=== PATIENT | male | born 1960 | race Caucasian/White ===

== ENCOUNTER 2020-08-18 16:00 | Emergency (ER) | payer OTHER ==
[~2020-08-18] VITALS: Ht 182.9 cm; Wt 140.6 kg
--- NOTE | 2020-08-18 16:24 | NUR ---
Dr Baum at the bedside for MSE.
[2020-08-18] MEDS ORDERED: REPA1TAB7 PO (16:29)
[2020-08-18] MEDS ORDERED: ROSU20TA2 PO (16:29)
[2020-08-18] MEDS ORDERED: METF-442 PO (16:29)
[2020-08-18] MEDS ORDERED: SITA100T PO (16:29)
[2020-08-18] MEDS ORDERED: ASPI81TA31 PO (16:29)
[2020-08-18] MEDS ORDERED: VITAMIN D3 PO (16:29)
[2020-08-18] MEDS ORDERED: GLIP5TAB13 PO (16:29)
[2020-08-18] MEDS ORDERED: OLME1TAB22 PO (16:29)
[2020-08-18] MEDS ORDERED: IV NORMAL SALINE 500 ML BAG IV ONE (16:30)
--- NOTE | 2020-08-18 16:55 | NUR ---
Pt out of Er for CT.
[2020-08-18 17:02] LABS: BASOPHILS % (AUTO) 0.4 % (0.0-2.0); EOSINOPHILS # (AUTO) 0.1 K/uL (0.0-0.7); EOSINOPHILS % (AUTO) 1.1 % (0.0-7.0); HEMATOCRIT 49.1 % (36.7-47.1); HEMOGLOBIN 16.6 g/dL (12.5-16.3); LYMPHOCYTES # (AUTO) 2.6 K/uL (20.0-40.0); LYMPHOCYTES % (AUTO) 25.5 % (20.5-51.5); MEAN CORPUSCULAR HEMOGLOBIN 30.1 uug (23.8-33.4); MEAN CORPUSCULAR HGB CONC 34 g/dL (32.5-36.3); MEAN CORPUSCULAR VOLUME 88.9 fL (73.0-96.2); MONOCYTES # (AUTO) 0.8 K/uL (2.0-10.0); MONOCYTES % (AUTO) 7.7 % (0.0-11.0); NEUTROPHILS # (AUTO) 6.7 K/uL (1.8-8.9); NEUTROPHILS % (AUTO) 65.3 % (38.5-71.5); PLATELET COUNT (AUTO) 206 K/uL (152-348); RED BLOOD CELL COUNT(AUTO) 5.52 MIL/uL (4.06-5.63); WHITE BLOOD COUNT (AUTO) 10.3 K/uL (3.6-10.2)
--- NOTE | 2020-08-18 17:07 | NUR ---
Pt back from Ct, resting in bed.
[2020-08-18 17:25] LABS: CREATININE 1.6 mg/dL (0.6-1.3); POTASSIUM 4.2 mmol/L (3.5-5.1)
[2020-08-18 17:30] LABS: BILIRUBIN,DIRECT 0.1 mg/dL (0.0-0.2); BILIRUBIN,TOTAL 0.3 mg/dL (0.2-1.0); TOTAL PROTEIN, SERUM 7.2 g/dL (6.4-8.2)
[2020-08-18] MEDS ORDERED: INSULIN REGULAR, HUMAN 300 UNIT/3 ML VIAL IV ONE (17:45)
[2020-08-18] MEDS ORDERED: IV NORMAL SALINE 1000 ML BAG IV ONE (17:45)
[2020-08-18] MEDS ORDERED: INSULIN REGULAR, HUMAN 300 UNIT/3 ML VIAL ONE (17:47)
--- NOTE | 2020-08-18 18:36 | NUR ---
IV removed. Catheter intact and site benign. Pressure and 4x4 gauze applied to site. No bleeding noted.
[2020-08-18 18:38] VITALS: BP 122/68
--- NOTE | 2020-08-18 18:38 | NUR ---
Patient discharged to home in stable condition. Written and verbal after care instructions given. Patient verbalizes understanding of instructions. Stressed follow up or return to ER for worsening s/s.
== END 2020-08-18 18:38 | disposition home or self-care (01) ==
LOC: ER 16:00
DX: E11.65 Type 2 diabetes mellitus with hyperglycemia (principal); Z79.84 Long term (current) use of oral hypoglycemic drugs; E66.9 Obesity, unspecified; Z68.41 Body mass index [BMI] 40.0-44.9, adult; E78.00 Pure hypercholesterolemia, unspecified; I10 Essential (primary) hypertension; Z90.49 Acquired absence of other specified parts of digestive tract; Z79.82 Long term (current) use of aspirin; Z79.899 Other long term (current) drug therapy; R94.31 Abnormal electrocardiogram [ECG] [EKG]
CPT/HCPCS: 36415; 70030-TC; 70450; 71045; 83605; 83690; 85025; 85730; 93005; A4663; J1815; J7030; J7040